=== PATIENT | male | born 1985 | race Caucasian/White ===

== ENCOUNTER 2022-04-30 12:34 | Emergency (ER) | payer MEDICAID | END 2022-04-30 14:11 | disposition home or self-care (01) | LOC: LB.ED 12:34 | DX: U07.1 COVID-19 (principal); Z88.0 Allergy status to penicillin | CPT/HCPCS: 71045; 99281; 99284; U0002 ==

== ENCOUNTER 2024-10-03 16:58 | Emergency (ER) | payer SELFPAY | END 2024-10-03 18:15 | disposition home or self-care (01) | LOC: LB.ED 16:58 | DX: J02.8 Acute pharyngitis due to other specified organisms (principal); F17.210 Nicotine dependence, cigarettes, uncomplicated; E66.9 Obesity, unspecified; Z86.16 Personal history of COVID-19; Z79.899 Other long term (current) drug therapy; Z88.0 Allergy status to penicillin; Z68.34 Body mass index [BMI] 34.0-34.9, adult | CPT/HCPCS: 87651-QW; 99283 ==